=== PATIENT | female | born 1975 | race Caucasian/White ===

== ENCOUNTER → 2016-11-07 | Outpatient (CLI) | payer BC ==
[~2016-11-07] MED LIST: ACHYD1T PO; DCS100C PO; HYDR1TAB PO; HYOS0.1217 PO; IBP800T PO; KETO-22 PO; NITR-33 PO; ONDAN4ODT PO; PHEN200T16 PO; POTA10CA43 PO; POTA10TA17 PO; POTA25TA5; TMSL.4C PO; TRIA1CAP4 PO
--- NOTE | 2016-11-07 20:57 | Diagnostic Imaging Report ---
Ultrasound of the left breast. INDICATION: Followup ultrasound exam. FINDINGS: The previous left breast ultrasound exam performed on 11/25/2015 noted a small 0.9 x 0.4 x 0.7 cm hypoechoic lesion in the 4 o'clock position of the left retroareolar region area. That finding measures minimally larger on this exam and is now estimated to be 1.1 x 0.4 x 0.8 cm. This does seem to be solid although it is avascular. This may well represent a benign fibroadenoma. If a tissue diagnosis is desired, then an ultrasound-guided biopsy could be performed although the biopsy would be technically challenging as the lesion is close to the implant. If there is no intervention at this time, then a short-term (six-month) followup ultrasound exam should be obtained. The small hypoechoic lesion in the 12 o'clock position seen previously is also again evident and no different. This may be solid as well. The suspected cyst in the 5 o'clock position seen previously is also unchanged. IMPRESSION: When compared to the previous study, there does not appear to have been any significant change. The lesion in the 4 o'clock position measures minimally larger but still has a generally benign appearance. Considerations and recommendations as above. These results were discussed with Dr. Seble Leyva. ACR BI-RADS Category 3: Probably benign findings. Dictated by: Dictated on workstation # [id number]
--- NOTE | 2016-11-07 21:35 | Diagnostic Imaging Report ---
Bilateral diagnostic mammogram. INDICATION: Follow-up exam. This study was compared to the prior exams of 08/03/2015 and 10/31/2011. At this time, there are no current complaints. The current study was also evaluated with a Computer Aided Detection (CAD) system. FINDINGS: There are bilateral breast implants in place. The implants appear similar to the prior exam. There is no sign of an extracapsular rupture of either implant. The fibroglandular tissue in both breasts is heterogeneously dense. This does limit the sensitivity of this exam. The previous study did show a small oval asymmetry in the lateral aspect of the left breast. The ultrasound exam performed on 08/13/2015 indicated three benign-appearing isoechoic/hypoechoic lesions in this area. On this exam, the nodular density in the left breast seen previously appears stable. This finding still has a generally benign appearance. Ultrasound of this area is pending for further study, however. The right breast is unchanged. IMPRESSION: 1. The small rounded density in the lateral aspect of the left breast seen previously is again evident and no different. This finding has a generally benign appearance. Ultrasound of the left breast is pending for further study, however. 2. There is no primary or secondary sign of malignancy noted otherwise. 3. The bilateral breast implants appear stable. There is no sign of extracapsular rupture of either implant. ACR BI-RADS Category 0: Incomplete. (Needs additional imaging evaluation). Result letter will be mailed to the patient. Note: At least 10% of breast cancer is not imaged by mammography. Dictated by: Dictated on workstation # [id number]
== END ==
LOC: RAD 09:09
PROVIDERS: ATTEND Internal Medicine
DX: R92.8 Other abnormal and inconclusive findings on diagnostic imaging of breast (principal)
CPT/HCPCS: 76641

== ENCOUNTER → 2018-08-29 | Outpatient (CLI) | payer BC | LOC: CARD 14:47 | PROVIDERS: ATTEND Internal Medicine | DX: R00.2 Palpitations (principal) | CPT/HCPCS: 93005 ==

== ENCOUNTER → 2021-09-24 | Outpatient (CLI) | payer BC ==
--- NOTE | 2021-09-27 15:34 | Diagnostic Imaging Report ---
INDICATION: Routine screening. COMPARISON is made with prior mammograms from 06/23/2020 and 05/14/2019. 2-D and 3-D bilateral screening mammography was performed with CAD. Bilateral subpectoral breast implants are noted. Implant contours remain stable. Both breasts are heterogeneously dense, limiting the sensitivity of mammography. A nodular density in the outer left breast appears stable. No new mass or malignant-appearing microcalcifications are seen. Axillae are unremarkable. IMPRESSION: BI-RADS Category 2 No mammographic features suspicious for malignancy are identified. ACR BI-RADS Category 2: Benign findings. Result letter will be mailed to the patient. Note: At least 10% of breast cancer is not imaged by mammography. Dictated by: Dictated on workstation # [id number]
== END ==
LOC: RAD 14:45
PROVIDERS: ATTEND Internal Medicine
DX: Z12.31 Encounter for screening mammogram for malignant neoplasm of breast (principal)
CPT/HCPCS: 77063; 77067

== ENCOUNTER 2021-12-13 05:35 | Outpatient (CLI) | payer BC ==
[~2021-12-13] VITALS: Ht 162.6 cm; Wt 61.7 kg
[2021-12-13] MEDS ORDERED: VNL37.5T PO (09:45)
[2021-12-13] MEDS ORDERED: SPIR25TA PO (09:45)
== END 2021-12-13 11:12 | disposition home or self-care (01) ==
LOC: PREOP 05:35
PROVIDERS: ATTEND Surgery
DX: Z01.818 Encounter for other preprocedural examination (principal)

== ENCOUNTER 2021-12-20 07:26 | Day surgery (SDC) | payer BC ==
[~2021-12-20] VITALS: Ht 162.6 cm; Wt 61.7 kg
[~2021-12-20 07:26] MED LIST changes: +SPIR25TA PO; +VNL37.5T PO
[2021-12-20 07:35] VITALS: BP 123/78
[2021-12-20] MEDS ORDERED: LACTATED RINGERS 1,000 ML IV ONE (07:35)
[2021-12-20] MEDS ORDERED: LACTATED RINGERS 1,000 ML IV STA (07:43)
[2021-12-20] MEDS ORDERED: PROPOFOL INJECTION 50 ML IV ONE (07:45)
--- NOTE | 2021-12-20 08:38 | Progress Note-Pre Operative ---
Pre-Operative Progress Note H&P Reviewed The H&P was reviewed, patient examined and no changes noted. Time Seen by Provider: 08:35 Date H&P Reviewed: Dec 20, 2021 Time H&P Reviewed: 08:35 Pre-Operative Diagnosis: screening colonoscopy KRISTI BALLARD DO Dec 20, 2021 08:38
--- NOTE | 2021-12-20 09:08 | Progress Note-Post Operative ---
Post-Operative Progess Note Surgeon (s)/Spud Driller (s) Surgeon KRISTI BALLARD DO Spud Driller: MARCIN Gentile Pre-Operative Diagnosis screening colonoscopy Post-Operative Diagnosis Int hemorrhoids Procedure & Operative Findings Date of Procedure 12/20/21 Procedure Performed/Findings Colonscopy PROCEDURE NOTE: After informed consent was obtained, the patient was brought to the endoscopy suite, placed in bed in left lateral decubitus position. She was administered IV sedation by the MEAT TEAM MEMBER who then monitored her vitals the entire time, heart rate, blood pressure and pulse ox and the scope was inserted, pushed all the way to about 140 cm and pushed into the cecum, took a picture of appendiceal orifice and then slowly withdrew the scope insufflating to look circumferentially at the arambula starting in the cecum, up the ascending colon to the hepatic flexure, then down the transverse colon, splenic flexure, into the descending colon down in the sigmoid and then into the rectal vault and retroflexed the scope. Took picture of the internal hemorrhoids. The patient tolerated the procedure. She was recovered in endoscopy suite. Anesthesia Type IV sedation by MEAT TEAM MEMBER Estimated Blood Loss Estimated blood loss (mL): none Specimens/Packing Specimens Removed none KRISTI BALLARD DO Dec 20, 2021 09:08
[2021-12-20 09:10] VITALS: BP 110/67
--- NOTE | 2021-12-20 09:10 | Endoscopy Discharge Instruct ---
Endo Procedure/Findings Findings 1.: Internal Hemorrhoids Discharge Instructions - Activity: You might feel a little sleepy until tomorrow. This is due to the me dicine you received to relax you. Until tomorrow, you should: NOT drive a car, operate machinery or power tools. NOT drink any alcoholic beverages. NOT make any important decisions or sign importortant papers. Do not return to work until tomorrow, unless otherwise instructed. Resume previous activities tomorrow. Diet: Start by taking liquids. If you tolerate liquids, advance to solid food. 1.: Colonscopy in 10 years Notify Physician - If you experience excessive bleeding, unusual abdominal pain, fever, or chest pain, contact your doctor immediately. KRISTI BALLARD DO Dec 20, 2021 09:10
[2021-12-20 09:34] VITALS: BP 114/74
--- NOTE | 2021-12-20 10:49 | Anesthesia-General Post-Op ---
MAC Patient Condition Mental Status/LOC: Same as Preop Cardiovascular: Satisfactory Nausea/Vomiting: Absent Respiratory: Satisfactory Pain: Controlled Complications: Absent Post Op Complications Complications None Follow Up Care/Instructions Patient Instructions None needed. Anesthesiology Discharge Order Discharge Order Patient is doing well, no complaints, stable vital signs, no apparent adverse anesthesia problems. No complications reported per nursing. DARIA FRANCO CRNA Dec 20, 2021 10:49
== END 2021-12-20 09:34 | disposition home or self-care (01) ==
LOC: ENDO 07:26
PROVIDERS: ATTEND Surgery
DX: Z12.11 Encounter for screening for malignant neoplasm of colon (principal); K64.8 Other hemorrhoids

== ENCOUNTER → 2022-09-26 | Outpatient (CLI) | payer BC ==
--- NOTE | 2022-09-26 17:30 | Diagnostic Imaging Report ---
INDICATION: Routine screening. COMPARISON is made with prior mammograms 09/24/2021 and 06/23/2020. 2-D and 3-D bilateral screening mammography was performed with CAD. Bilateral breast implants are again noted. Implant contours remain smooth. Both breasts are heterogeneously dense, limiting the sensitivity of mammography. A benign-appearing nodular density outer left breast is stable. No spiculated mass or malignant-appearing microcalcifications are seen. There are benign calcifications noted. Axillae are unremarkable. IMPRESSION: BI-RADS Category 2 No mammographic features suspicious for malignancy are identified. ACR BI-RADS Category 2: Benign findings. Result letter will be mailed to the patient. Note: At least 10% of breast cancer is not imaged by mammography. Dictated by: Dictated on workstation # [id number]
== END ==
LOC: RAD 14:43
PROVIDERS: ATTEND Internal Medicine
DX: Z12.31 Encounter for screening mammogram for malignant neoplasm of breast (principal)
CPT/HCPCS: 77063; 77067